=== PATIENT | female | born 1960 | race Caucasian/White ===

== ENCOUNTER → 2019-06-05 | Outpatient (CLI) | payer OTHER ==
--- NOTE | 2019-06-05 17:59 | CARDNUC ---
[place] [address] CARDIAC NUCLEAR IMAGING REPORT Name: BETHAYN MEMBRENO Room: [facility]#: [id number] Admission: 06/05/19 Attend Phys: Sheron Brown, Discharge: Date of : 58 Date of Service: 06/05/19 1758 Report #: [id number] THIS REPORT FOR: cc: Myra Hunt MD, Pamela MD Liston, Michael J. MD [facility] ~ APPROVED REPORT Study performed: 06/05/2019 09:38:35 Indication: Chest pain, Dyspnea, Abnormal EKG, Aortic Valve Stenosis Patient Location: Out-Patient Stress Tech: Vira Doshi Stress Nurse: Tamiko Sullivan RN Ht: 5 ft 3 in Wt: 171 lbs BSA: 1.81 m2 BMI: 30.28 Medical History Medical History: PVD AV stenosis, Diabetes Medications: asa-81, lasix Allergies: ultram, tape Cardiac Risk Factors: Age, PVD, Smoking, FHX of CAD Exercise History: Sedentary Resting Data Rest SPECT myocardial perfusion imaging was performed in supine position 30 minutes following the intravenous injection of 10.3 mCi of Tc-99m Sestamibi. Time of rest injection: 0800 The images were gated to evaluate regional wall motion and calculate left ventricular ejection fraction. Administration Route: IV Administration Site: Right AC Pharmacologic Stress Pharmacologic stress test was performed by injecting Regadenoson 0.4 mg IV push over 10-15 seconds immediately followed by the intravenous injection of 28.1 mCi of Tc-99m Sestamibi. Time of stress injection: 944 Administration Route: IV Administration Site: Right AC Heart Rate at time of stress injection: [place] [address] CARDIAC NUCLEAR IMAGING REPORT Name: HASEEBBETHANY Room: [facility]#: [id number] Admission: 06/05/19 Attend Phys: Sheron Brown, Discharge: Date of : 58 Date of Service: 06/05/19 1758 Report #: [id number] Gated Stress SPECT was performed 45 minutes after stress injection. The images were gated to evaluate regional wall motion and calculate left ventricular ejection fraction. Stress Test Details Stress Test: Pharmacologic stress testing performed using 0.4 mg of regadenoson per 5 mL given IV over 10 seconds. Reason for pharmacologic stress test: physical limitation. HR Max Heart Rate (APMHR): 161 bpm Resting HR: 68 bpm Target HR (85% APMHR): 136 bpm Max HR Achieved: 91 bpm % of APMHR: 56 Recovery HR: 78 bpm BP Resting BP: 146/74 mmHg Max BP: 147/80 mmHg Recovery BP: 167/86 mmHg ECG Resting ECG: Sinus Rhythm Stress ECG: Sinus Rhythm ST Change: None Arrhythmia: None Recovery ECG: Sinus Rhythm Recovery ST Change: None Recovery Arrhythmia: None Clinical Reason for Termination: Completed protocol Exercise duration: 0 min sec Exercise capacity: 1 METs The patient tolerated Lexiscan infusion without significant cardiac symptoms. Nurse Comments pt unable to walk on treadmill due to chronic back pain. pt vomited and was given 60 mg caffeine ivp, symptoms resolved Stress ECG Conclusion The baseline 12-lead EKG shows sinus rhythm without significant ST segment abnormality. EKGs obtained during and post Lexiscan infusion show sinus rhythm with no significant ST segment changes when compared to baseline. There were no [place] [address] CARDIAC NUCLEAR IMAGING REPORT Name: BETHANY MEMBRENO Room: [facility]#: [id number] Admission: 06/05/19 Attend Phys: Sheron Brown, Discharge: Date of : 58 Date of Service: 06/05/19 1758 Report #: [id number] Study Quality Study: Good Artifact: Mild Breast artifact Study Data At rest, the left ventricular ejection fraction was 82%.. Post stress, the left ventricular ejection was 76%.. TID = 1.05. Perfusion Myocardial perfusion images obtained at rest show very slight photopenia in the mid anterior wall that is less pronounced on stress than resting images suggesting breast attenuation artifact. There were no other significant fixed or reversible defects. Wall Motion Normal left ventricular wall motion. Nuclear Conclusion Myocardial perfusion images show no defect to suggest infarct or ischemia. Left ventricular systolic function appears normal on gated studies. This is a low risk study. <Conclusion> The baseline 12-lead EKG shows sinus rhythm without significant ST segment abnormality. EKGs obtained during and post Lexiscan infusion show sinus rhythm with no significant ST segment changes when compared to baseline. There were no stress-induced arrhythmias. <ELECTRONICALLY SIGNED> By: Chris Castanon MD, FACC 06/05/191757 57 57 Chris Castanon MD, FACC /INF
== END ==
LOC: M.NUC 04-23 07:55 → M.CRD 05-08 08:00 → M.NUC 05-08 08:00
DX: R94.31 Abnormal electrocardiogram [ECG] [EKG] (principal); R07.2 Precordial pain; I35.0 Nonrheumatic aortic (valve) stenosis; I08.0 Rheumatic disorders of both mitral and aortic valves; Q23.1 Congenital insufficiency of aortic valve